=== PATIENT | male | born 1970 | race Caucasian/White ===

== ENCOUNTER 2018-09-01 20:54 | Inpatient (IN) | payer OTHER ==
--- NOTE | 2018-09-01 21:29 | ED Physician Chart ---
ED Chief Complaint/HPI - Patient Information Date Seen:: 09/01/18 Time Seen:: 21:10 Chief Complaint:: pain both arms History of Present Illness:: Patient had onset 3 days ago of pain in both antecubital fossa and both distal biceps. Pain is described as crushing. Pain sometimes alternates or can be both arms at the same time. He has severe right arm pain only now. Pain may occur at rest or with slight exertion. No chest pain. No recent trauma. Patient was seen at [facility] about one year ago for chest pain and was discharged but used a Halter monitor for 2 weeks. Allergies:: Allergies Allergy/AdvReac Type Severity Reaction Status Date / Time Penicillins Allergy Verified 09/01/18 21:03 Vitals:: Vital Signs - 8 hr 09/01/18 09/01/18 20:55 21:09 Temp 99.0 F 99.2 F HR 102 86 RR 18 18 BP 160/105 145/93 O2 Sat % 95 97 Historian:: Patient, Family Member ED Review of Systems - Review of Systems General/Constitutional: No fever, No chills Skin: No skin lesions Head: No headache Eyes: No loss of vision ENT: No earache Neck: No neck pain, No swelling Cardio Vascular: No chest pain Pulmonary: No SOB GI: No nausea, No vomiting, No diarrhea Musculoskeletal: Muscle pain Endocrine: No polyuria, No polydipsia Psychiatric: No prior psych history, No depression Hematopoietic: No bruising Allergic/Immuno: No urticaria Neurological: No syncope ED Past Medical History - Past Medical History Past Medical History: No significant medical hx Family History: Heart disease, Diabetes Melitus, HTN Social History: Alcohol, Other Employment:: Quit smoking 20 years ago; drinks 1-2 beers per day Surgical History: None Psychiatricy History: None Medication: Reviewed Family Medical History - Family Member Mother History Unknown: Yes ED Physical Exam - Physical Examination General/Constitutional: Awake, Well-developed, well-nourished, Alert, No distress, GCS 15, Non-toxic appearing, Ambulatory Head: Atraumatic Eyes: Lids, conjuctiva normal, PERRL, EOMI Skin: Nl inspection, No rash, No skin lesions, No ecchymosis, Well hydrated, No lymphadenopathy ENMT: External ears, nose nl, Nasal exam nl, Lips, teeth, gums nl Neck: Nontender, Full ROM w/o pain, No JVD, No nuchal rigidity, No bruit, No mass, No stridor Respiratory: Nl effort/Exclusion, Clear to Auscultation, No Wheeze/Rhonchi/Rales Cardio Vascular: RRR, No murmur, gallop, rubs, NL S1 S2 GI: No tenderness/rebounding/guarding, No organomegaly, No hernia, Normal BS's, Nondistended, No mass/bruits, No McBurney tenderness : No CVA tenderness Extremities: No tenderness or effusion, Full ROM, normal strength in all extremities, No edema, Normal digits & nails Neuro/Psych: Alert/oriented, DTR's symmetric, Normal sensory exam, Normal motor strength, Judgement/insight normal, Mood normal, Normal gait, No focal deficits Misc: Normal back, No paraspinal tenderness ED Labs/Radiology/EKG Results - Radiology Results Results: Chest x-ray normal - EKG Interpretations Rate & Rhythm: normal sinus rhythm with a rate of 85 Ideal: normal Comments:: No ST or T-wave changes ED Assessment - Assessment General Assessment: Patient's right arm pain went down from my 9 out of 10 to a 5 out of 10 after 2 nitroglycerin. Repeat EKG was essentially unchanged from the first EKG. Patient may well have unstable angina. Troponin is negative. Patient will be admitted to Dr. Hinojosa's service to whom I spoke at [id number]. ED Septic Shock - . Is Septic Shock (SBP<90, OR Lactate>4 mmol\L) present?: No - <6hrs of presentation: Vital Signs: Vital Signs - 8 hr 09/01/18 09/01/18 20:55 21:09 Temp 99.0 F 99.2 F HR 102 86 RR 18 18 BP 160/105 145/93 O2 Sat % 95 97 ED Reassessment (Disposition) - Reassessment Reassessment Condition:: Improved - Diagnosis Diagnosis:: Acute coronary syndrome - Patient Disposition Admitted to:: Telemetry Spoke to:: Joao Hinojosa Admitting Medical Physician:: Joao Hinojosa Condition at Disposition:: Stable, Improved
[2018-09-01 21:44] LABS: % BASOPHILS 0.2 % (0.0-2.0); % EOSINOPHILS 3.5 % (0.0-5.0); % LYMPHOCYTES 21.5 % (20.0-50.0); % MONOCYTES 4.3 % (2.0-10.0); % NEUTROPHILS 70.5 % (40.0-80.0); EOSINOPHILE ABSOLUTE 0.4 Th/cmm (0.1-0.4); HEMATOCRIT 47.7 % (41.0-60); HEMOGLOBIN 15.8 gm/dL (12-16); LYMPHOCYTE ABSOLUTE 2.3 Th/cmm (1.5-3.0); MEAN CELL VOLUME 91.4 fl (80-99); MEAN CORPUSCULAR HEMOGLOBIN 30.2 pg (26.0-30.0); MEAN CORPUSCULAR HGB CONC 33.1 pg (28.0-36.0); MONOCYTE ABSOLUTE 0.5 Th/cmm (0.3-1.0); NEUTROPHILE ABSOLUTE 7.6 Th/cmm (1.8-8.0); PLATELET COUNT 292 Th/cmm (150-400); RED BLOOD COUNT 5.22 Mil/cmm (4.30-5.70); RED CELL DISTRIBUTION WIDTH 12.2 % (11.5-20.0); WHITE BLOOD COUNT 10.8 Th/cmm (4.8-10.8)
[2018-09-01 21:54] LABS: ANION GAP 12.1 (7.0-16.0); BUN - UREA NITROGEN 18 mg/dL (7-25); CALCIUM SERUM 9.3 mg/dL (8.6-10.3); CARBON DIOXIDE 27.8 mEq/L (21.0-31.0); CHLORIDE 103 mEq/L (98-107); CREATININE - SERUM 1.2 mg/dL (0.7-1.3); GFR AFRICAN-AMERICAN > 60.0 ml/min (>90); GFR NON AFRICAN-AMERICAN > 60.0 ml/min; GLUCOSE 104 mg/dL (70-105); MAGNESIUM 1.8 mg/dL (1.9-2.7); POTASSIUM SERUM 3.9 mEq/L (3.5-5.1); SODIUM SERUM 139 mEq/L (136-145)
[2018-09-01] MEDS ORDERED: NITROGLYCERIN OINT 2% 1 INCH PACKET TP ONE (21:55)
[2018-09-01] MEDS ORDERED: Potassium Chloride 20 mEq ER Tab PO ONE ×2 (22:31→22:41)
[2018-09-01] MEDS ORDERED: Mag Sulfate 2gm/50mL Premix 2 GM/50 ML BAG IV ONE (22:32)
[2018-09-01] MEDS ORDERED: Magnesium Sulfate 1 gm/2 mL 2mL Vial IV ONE (22:42)
[2018-09-01] MEDS ORDERED: Sodium Chloride 0.9% 500 ML IV ONE (23:07)
[2018-09-01] MEDS ORDERED: Acetaminophen 500 MG TAB PO PRN (23:11)
[2018-09-02 04:31] VITALS: BP 104/67
--- NOTE | 2018-09-02 08:38 | Diagnostic Imaging Report ---
Chest x-ray single view History: Pain Comparison: None The heart size is normal. No focal pulmonary parenchymal processes. No hilar or mediastinal abnormalities. Impression: No acute abnormalities
[2018-09-02] MEDS ORDERED: Aspirin 81mg Chewable Tab PO SCH (09:00)
--- NOTE | 2018-09-02 17:07 | Cardiology ---
09/02/[address] Joao Hinojosa. PROCEDURE: Echocardiogram. M-MODE ECHOCARDIOGRAM: Mitral valve, anterior leaflet of mitral valve shows normal excursion, EF velocity. Posterior leaflet of the mitral valve shows normal excursion. Left ventricular posterior valve shows increased thickness, normal excursion. Interventricular septum shows increased thickness, normal excursion. There is hypertrophy of the left ventricle, ejection fraction 65%. Left atrium normal. Aortic root shows normal dimension, normal excursion of aortic leaflets. CONCLUSION: Minimal hypertrophy of the left ventricle, ejection fraction 65%. 2D ECHO: Long axis view shows normal sized left ventricle with hypertrophy of the left ventricle. Left atrium normal. Aortic root shows normal dimension, normal excursion of aortic leaflets. Short axis view of mitral valve normal. Short axis view of aortic valve normal. Apical four chamber view showed normal sized left ventricle, left atrium, right ventricle, right atrium, tricuspid and mitral valve. Ejection fraction 65%. CONCLUSION: Minimal hypertrophy of the left ventricle, ejection fraction 65%. Doppler study shows mild mitral regurgitation, mild tricuspid regurgitation, mild aortic regurgitation. Right ventricular systolic pressure 32 mmHg. JOB# [id number]
--- NOTE | 2018-09-03 14:15 | Consultation ---
DATE OF CONSULTATION: 09/02/2018 PATIENT OF: Dr. Joao Hinojosa. 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 The patient has been complaining of pain in both the wrists, radiating to the elbow since last Wednesday. Since the pain got worse, she came to the Emergency Room and the patient is admitted. No history of chest pain. PAST MEDICAL HISTORY: Unremarkable. FAMILY HISTORY: Heart disease, diabetes, and hypertension. SOCIAL HISTORY: The patient drinks about 1-2 beers a day. No history of smoking, quit 20 years ago. ALLERGIES: None. PHYSICAL EXAMINATION: VITAL SIGNS: Blood pressure 130/80, pulse 70, respirations 20. HEAD: Normocephalic. No lumps or bumps. EYES: Pupils equal, reactive to light. Fundi show AV nicking, sclerae white, conjunctivae pink. NECK: Carotid 2+. Normal upstroke. JVD flat. Thyroid not palpable. Lymph nodes not palpable. CHEST: Shows increased AP diameter. No kyphosis or scoliosis. LUNGS: Bilateral bronchovesicular breath sounds. HEART: PMI fifth intercostal space with lateral to midclavicular line. S1, S2. No S3, S4, soft systolic murmur. ABDOMEN: Soft. Liver, spleen not palpable. No organomegaly. Bowel sounds active. NEUROLOGIC: Unremarkable. EXTREMITIES: Peripheral pulses 2+. No pedal edema. DIAGNOSTIC DATA: The patient's EKG unremarkable. Echocardiogram unremarkable. ASSESSMENT: Chest pain, unlikely coronary artery disease. JOB# [id number]
--- NOTE | 2018-09-07 22:32 | History & Physical ---
ADMIT DATE: 09/02/2018 CHIEF COMPLAINT: Bilateral arm pain. HISTORY OF PRESENT ILLNESS: A 47-year-old male who was evaluated by Emergency Room at [facility] for bilateral arm pain, who responded well with nitroglycerin, so the possibility of ACS were identified, so the patient admitted for further cardiac evaluation. The patient denies any chest pain or pressure. No dizziness, no diaphoresis, no nausea or vomiting. No prior history of established cardiac diagnosis. The patient says he had similar issues in the past and was evaluated at [place]. Had a stress test done about a year ago, which was negative for any significant findings. PAST MEDICAL HISTORY: Denies. PAST SURGICAL HISTORY: Denies. FAMILY HISTORY: Positive for cardiac disease. SOCIAL HISTORY: Lives at home. Positive for tobacco. Denies alcohol or drug use. ALLERGIES: NKDA REVIEW OF SYSTEMS: As per HPI, all 12-point system review is negative. PHYSICAL EXAMINATION: VITAL SIGNS: Temperature 97.6, pulse 70, respirations 18, blood pressure 120/78, and oxygen saturation 98% room air. Pain 0/10. HEENT: Unremarkable. HEART: S1 and S2 normal. LUNGS: Clear to auscultation. ABDOMEN: Soft and nontender. No guarding or rigidity. NEUROLOGIC: Non focal EXTREMITIES: Negative for edema. No calf tenderness. AVAILABLE LABORATORY DATA: As noted. ASSESSMENT: 1. Atypical chest pain. 2. Nicotine dependency. 3. Elevated blood pressure. PLAN: The patient was evaluated by Cardiology. Cardiac workup was essentially negative. Troponins are negative. Cardiology cleared the patient for home discharge. Smoking cessation advised. Outpatient blood pressure monitoring advised. The patient's condition and plan of care discussed with nursing staff. JOB# [id number] OBED
== END 2018-09-02 16:44 | disposition home or self-care (01) | DRG 313 ==
LOC: ER 20:54 → TELE 22:58
PROVIDERS: ADMIT Family Medicine; ATTEND Family Medicine
DX: R07.89 Other chest pain (principal); I24.9 Acute ischemic heart disease, unspecified; Z88.0 Allergy status to penicillin; I10 Essential (primary) hypertension; Z82.49 Family history of ischemic heart disease and other diseases of the circulatory system; Z83.3 Family history of diabetes mellitus; Z87.891 Personal history of nicotine dependence
CPT/HCPCS: 36415-UA; 71045-TC; 80048-TC; 83735-TC; 84484-TC; 85025-TC; 93005; J3475; J7030; J7040